=== PATIENT | female | born 1995 | race Caucasian/White ===

== ENCOUNTER 2017-02-18 18:16 | Emergency (ER) | payer OTHER ==
--- NOTE | 2017-02-18 18:54 | EDPHY ---
HPI/HX/ROS/PE/MDM Narrative: CHIEF COMPLAINT: Thumb laceration HPI: This patient is a healthy 21 year old female who complains of left thumb pain secondary to an accidental laceration. She describes cutting through the tip of her thumb while slicing bread at work this evening. Her pain is mild in severity. She denies other injuries, weakness, or paresthesias. She denies pertinent medical history. REVIEW OF SYSTEMS: Aside from elements discussed in the HPI, a comprehensive 10-point review of systems was reviewed and is negative. PMH: Denies. 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 PHYSICAL EXAM: General:Patient is alert, in no acute distress. Neck: Normal inspection. Full range of motion. Respiratory:No respiratory distress. Cardiovascular: Normal cap refill. Skin: Normal color. No rash. Warm and dry. Extremities: Left thumb: 1cm avulsion to tip. Otherwise normal appearance. Full range of motion. Neuro: Oriented x3. Normal motor function. Normal sensory function. ED Course: This is a healthy 21 year old female who presents with an isolated 1cm avulsion injury to the tip of her left thumb. We discussed repair options including Dermabond vs sutures. She requested to proceed with suture repair. Procedure: Laceration repair. Verbal consent was obtained from the patient. The 1cm fingertip avulsion on the left thumb was anesthetized using 50% lidocaine with 50% bupivacaine. The wound was cleaned with standard ED protocol, draped and explored with a gloved finger. There were no deep structures involved. No tendon injury was identified. The wound was repaired in single layer technique with 3 sutures of 5 -0 Prolene. The wound repair was simple. The procedure was performed by myself, Dr. Hebert. Patient was discharged with standard suture care instructions, and is aware she needs to return in 7-10 days for suture removal. She understands she needs to follow up with Workers Comp clinic as directed by her HR department. Return precautions given. She is comfortable with this plan. General Time Seen by Provider: 02/18/17 18:37 Initial Vital Signs: Initial Vital Signs Temperature (C) 36.5 C 02/18/17 18:26 Heart Rate 69 02/18/17 18:26 Respiratory Rate 20 02/18/17 18:26 Blood Pressure 115/75 02/18/17 18:26 O2 Sat (%) 97 02/18/17 18:26 O2 Delivery Mode Room Air Allergies/Adverse Reactions: bismuth subsalicylate [From Pepto-Bismol] Allergy (Verified 02/18/17 18:25) Home Medications: Medication Instructions Recorded Bcp 02/18/17 Zoloft 100mg (*) 02/18/17 Departure - Departure Disposition: Home, Routine, Self-Care Clinical Impression: left thumb Avulsion of finger tip Qualifiers: Encounter type: initial encounter Qualified Code(s): S61.209A - Unspecified open wound of unspecified finger without damage to nail, initial encounter Condition: Good Instructions: Care For Your Stitches (ED), Finger Laceration (ED) Additional Instructions: 1. Return to the ED for suture removal in 7-10 days. 2. Follow up with the appropriate clinic as directed for your HR department for workers comp. 3. Return to the ED for severe pain, dramatic increase in redness or swelling, fever, or other worsening condition. Referrals: NONE *PRIMARY CARE P,. [Primary Care Provider] - As per Instructions Mi Salazar MD [Medical Doctor] - As per Instructions Report Scribed for: Cisco Hebert Report Scribed by: Arlene Morales Date of Report: 02/18/17 Time of Report: 18:55 Physician Review and Approval Statement: Portions of this note were transcribed by an ED scribe. I personally performed the history, physical exam, and medical decision making; and confirm the accuracy of the information in the transcribed note.
[2017-02-18 19:36] VITALS: BP 120/72; PULSE 52; RESP 16; TEMP 98.1; O2SAT 98
== END 2017-02-26 15:37 | disposition home or self-care (01) ==
PROC: 0HQGXZZ Repair Left Hand Skin, External Approach (ICD-10-PCS; principal; 2017-02-18)
DX: S61.002A Unspecified open wound of left thumb without damage to nail, initial encounter (principal); W26.0XXA Contact with knife, initial encounter; Y92.69 Other specified industrial and construction area as the place of occurrence of the external cause; Y99.0 Civilian activity done for income or pay; Y93.89 Activity, other specified